=== PATIENT | female | born 1960 | race Caucasian/White ===

== ENCOUNTER 2018-03-06 19:31 | Emergency (ER) | payer MEDICAID ==
--- NOTE | 2018-03-06 20:03 | ED Physician Chart ---
ED Chief Complaint/HPI - Patient Information Date Seen:: 03/06/18 Time Seen:: 20:02 Chief Complaint:: Abdominal pain History of Present Illness:: 57 yo female had abdominal pain for 2 months, worsen for 3 days. The pain was in epigastric, bilateral inguinal and bilateral flank area. Nausea, no vomiting. No fever. Urinary burning sensation for 2 months. No blood in urine. Ibuprofen did not relieve the pain. Allergies:: Allergies Allergy/AdvReac Type Severity Reaction Status Date / Time No Known Allergies Allergy Verified 03/06/18 19:59 Vitals:: Vital Signs - 8 hr 03/06/18 19:45 Temp 97.6 F HR 75 RR 18 BP 103/64 O2 Sat % 98 ED Review of Systems - Review of Systems General/Constitutional: No fever Skin: No skin lesions Head: No headache Eyes: No pain ENT: No nasal drainage Neck: No neck pain Cardio Vascular: No chest pain Pulmonary: No SOB GI: Nausea, No vomiting, Pain, Constipation Musculoskeletal: No bone or joint pain Psychiatric: No prior psych history Neurological: No focal symptoms ED Past Medical History - Past Medical History Past Medical History: Arthritis Social History: Non Smoker, No Alcohol, No Drug Use Surgical History: other (fibroid surgery) Family Medical History - Family Member Mother History Unknown: Yes ED Physical Exam - Physical Examination General/Constitutional: Awake Other Gen/Cons comments:: In distress Head: Atraumatic Eyes: PERRL Skin: No ecchymosis ENMT: Nasal exam nl Neck: No nuchal rigidity Respiratory: Clear to Auscultation Cardio Vascular: RRR, No murmur, gallop, rubs, NL S1 S2 Other GI comments:: Diffused tenderness, bilateral inguinal 2-3 painful LNs Other comments:: B/L CVA tenderness Neuro/Psych: Normal motor strength, No focal deficits ED Labs/Radiology/EKG Results - Radiology Results Results: CT abdomen: appendicolith without appendicitis, large amount of fecal content ED Assessment - Assessment General Assessment: Chronic constipation Leukopenia Assessment/Comments:: CBC, CMP, lipase UA CT abdomen with IV contrast Rocephin IV Flagyl IV D/c home Metronidazole 500mg PO bid x 14 days Magnesium citrate Colace 100mg PO bid x 14 days F/u PCP or return to ER if symptoms worsen ED Septic Shock - . Is Septic Shock (SBP<90, OR Lactate>4 mmol\L) present?: No - <6hrs of presentation: Vital Signs: Vital Signs - 8 hr 03/06/18 19:45 Temp 97.6 F HR 75 RR 18 BP 103/64 O2 Sat % 98 ED Reassessment (Disposition) - Reassessment Reassessment Condition:: Improved - Patient Disposition Discharge/Transfer:: Home ED Discharge Plan - Patient Disposition Admit/Discharge/Transfer: PT DISCHARGED HOME Instructions: Abdominal Pain, [id number] Additional Instructions: FOLLOW UP WITH YOUR FAMILY DOCTOR SOON POSSIBLE TAKE PRESCRIBED MEDICATIONS ORDERED Accepting Physician: not on staff,PCP is [Primary Care Provider] -
[2018-03-06 20:07] LABS: URINE MICROSCOPIC INDICATED? YES; URINE SOURCE RANDOM
[2018-03-06 20:28] LABS: URINE BILIRUBIN NEGATIVE (NEGATIVE); URINE BLOOD NEGATIVE (NEGATIVE); URINE CLARITY CLEAR (CLEAR); URINE COLOR YELLOW; URINE GLUCOSE (UA) NEGATIVE (NEGATIVE); URINE KETONE NEGATIVE (NEGATIVE); URINE PH 5.5 (4.6 - 8.0); URINE PROTEIN NEGATIVE (NEGATIVE); URINE UROBILINOGEN 0.2 E.U./dL (0.2 - 1.0)
[2018-03-06 20:29] LABS: URINE BACTERIA FEW /hpf (NONE SEEN); URINE EPITHELIAL CELLS OCCASIONAL /lpf (FEW); URINE LEUKOCYTE ESTERASE NEGATIVE (NEGATIVE); URINE NITRATE NEGATIVE (NEGATIVE); URINE RBC NONE SEEN /hpf (0-5); URINE WBC 0-2 /hpf (0-5)
[2018-03-06 20:32] LABS: % BASOPHILS 1.4 % (0.0-2.0); % EOSINOPHILS 2.5 % (0.0-5.0); % LYMPHOCYTES 22.4 % (20.0-50.0); % NEUTROPHILS 59.7 % (40.0-80.0); EOSINOPHILE ABSOLUTE 0.1 Th/cmm (0.1-0.4); HEMATOCRIT 36.6 % (41.0-60); HEMOGLOBIN 12.3 gm/dL (12-16); LYMPHOCYTE ABSOLUTE 0.6 Th/cmm (1.5-3.0); MEAN CELL VOLUME 87.2 fl (81-100); MEAN CORPUSCULAR HEMOGLOBIN 29.3 pg (27.0-31.0); MEAN CORPUSCULAR HGB CONC 33.6 pg (28.0-36.0); MEAN PLATELET VOLUME 7.9 fl; MONOCYTE ABSOLUTE 0.4 Th/cmm (0.3-1.0); NEUTROPHILE ABSOLUTE 1.7 Th/cmm (1.8-8.0); PLATELET COUNT 171 Th/cmm (150-400); RED CELL DISTRIBUTION WIDTH 12.6 % (11.5-20.0)
[2018-03-06 20:37] LABS: WHITE BLOOD COUNT 2.8 Th/cmm (4.8-10.8)
[2018-03-06 21:09] LABS: ALB/GLOB RATIO 1.2 (1.0-1.8); ALBUMIN 4.2 gm/dL (3.7-5.3); ALKALINE PHOSPHATASE 80 U/L (34-104); ANION GAP 12.4 (7.0-16.0); BILIRUBIN,TOTAL 0.3 mg/dL (0.3-1.0); BUN - UREA NITROGEN 16 mg/dL (7-25); CALCIUM SERUM 9.2 mg/dL (8.6-10.3); CARBON DIOXIDE 22.2 mEq/L (21.0-31.0); CHLORIDE 104 mEq/L (98-107); CREATININE - SERUM 0.7 mg/dL (0.6-1.2); GFR AFRICAN-AMERICAN > 60.0 ml/min (>90); GFR NON AFRICAN-AMERICAN > 60.0 ml/min; GLUCOSE 94 mg/dL (70-105); LIPASE 25 U/L (11-82); POTASSIUM SERUM 3.6 mEq/L (3.5-5.1); SGOT 20 U/L (13-39); SGPT/ALT 13 U/L (7-52); SODIUM SERUM 135 mEq/L (136-145); TOTAL PROTEIN,SERUM 7.6 gm/dL (6.0-8.3)
[2018-03-06 21:46] LABS: INR 0.96 (0.5-1.4)
[2018-03-06] MEDS ORDERED: IOHEXOL 300mgI/mL 100 ML VIAL ONE (22:01)
[2018-03-06] MEDS ORDERED: Sodium Chloride 0.9% 1,000 ML IV ONE (22:40)
[2018-03-06] MEDS ORDERED: cefTRIAXone 1 GM in Sodium Chloride 0.9% 50 ML IV ONE (22:47)
[2018-03-06] MEDS ORDERED: metroNIDAZOLE 500mg/NS 100mL 500 MG/100 ML BAG IV ONE ×2 (22:48→22:55)
[2018-03-07] MEDS ORDERED: Magnesium Citrate 1.75 GM/300 mL Bottle ONE (00:08)
[2018-03-07] MEDS ORDERED: Magnesium Citrate 1.75 GM/300 mL Bottle PO ONE (00:09)
--- NOTE | 2018-03-08 10:20 | Diagnostic Imaging Report ---
CT abdomen and pelvis with intravenous contrast Indication: Abdominal pain Comparison: None, Technique: Axial images were obtained from the lung bases to the bilateral proximal femurs with IV contrast. Coronal reconstructions were made. total DLP: 292, CTDI4.9 FINDINGS: Exam was presented for review on 03/08/2018 Hypoventilatory and atelectatic changes of the lungs are noted. Hypoventilatory atelectatic changes of the lung bases are noted. No evidence of focal hepatic, splenic, pancreatic, or adrenal lesions. 1 cm left renal cyst is noted. No hydronephrosis. Nonspecific Heterogeneous uterus enhancement is noted. Moderate stool is seen throughout the colon. No evidence of free fluid or free air. There is a 3 mm appendicolith. No evidence of acute appendicitis. No free fluid or free air identified. Degenerative changes of the spine are noted. Mildly prominent bilateral inguinal lymph nodes are incidentally noted. IMPRESSION: 3 mm appendicolith. No evidence of acute appendicitis. Correlation should made with clinical findings. Moderate stool throughout the colon. No evidence of free fluid. 1 cm left renal cyst. Mildly prominent bilateral inguinal lymph nodes nonspecific and possibly reactive. Consider follow-up surveillance if indicated.
== END 2018-03-07 00:15 | disposition home or self-care (01) ==
LOC: ER 19:31
DX: K59.09 Other constipation (principal); D72.819 Decreased white blood cell count, unspecified
CPT/HCPCS: 99284; 96365; 96368; 96375; 74177; 36415; 83605; 85025; 85610; 81001; 81025; 83690; 80053; 87040; C9113; J0696; 90799; J7030; Q9967; Z7502

== ENCOUNTER 2018-06-24 23:40 | Emergency (ER) | payer MEDICAID ==
--- NOTE | 2018-06-25 00:06 | ED Physician Chart ---
ED Chief Complaint/HPI - Patient Information Date Seen:: 06/25/18 Time Seen:: 00:00 Chief Complaint:: pain in arms, legs, shoulders History of Present Illness:: Pain started in on legs, and his shoulders after she cleaned the house yesterday. No other trauma. Patient had nausea yesterday morning which is now subsided. Allergies:: Allergies Allergy/AdvReac Type Severity Reaction Status Date / Time No Known Allergies Allergy Verified 03/06/18 19:59 Vitals:: Vital Signs - 8 hr 06/24/18 23:40 Temp 99.1 F HR 81 RR 18 BP 129/45 O2 Sat % 97 Historian:: Patient Review:: Nurse's Note Reviewed ED Review of Systems - Review of Systems General/Constitutional: No fever, No chills, No weight loss, No weakness, No diaphoresis, No edema, No loss of appetite Skin: No skin lesions Head: No headache Eyes: No loss of vision ENT: No earache Neck: No neck pain Cardio Vascular: No chest pain Pulmonary: No SOB GI: Nausea G/U: No dysuria Musculoskeletal: Bone or joint pain Endocrine: No polyuria Psychiatric: No prior psych history, No depression Hematopoietic: No bruising Allergic/Immuno: No urticaria Neurological: No syncope ED Past Medical History - Past Medical History Past Medical History: Arthritis Family History: None Social History: Non Smoker, No Alcohol Surgical History: other (ovarian cyst) Psychiatricy History: None Medication: Reviewed Family Medical History - Family Member Mother History Unknown: Yes ED Physical Exam - Physical Examination General/Constitutional: Awake, Well-developed, well-nourished, Alert, No distress, GCS 15, Non-toxic appearing, Ambulatory Head: Atraumatic Eyes: Lids, conjuctiva normal, PERRL, EOMI Skin: Nl inspection, No rash, No skin lesions, No ecchymosis, Well hydrated, No lymphadenopathy ENMT: External ears, nose nl, Nasal exam nl, Lips, teeth, gums nl Neck: Nontender, Full ROM w/o pain, No JVD, No nuchal rigidity, No bruit, No mass, No stridor Respiratory: Nl effort/Exclusion, Clear to Auscultation, No Wheeze/Rhonchi/Rales Cardio Vascular: RRR, No murmur, gallop, rubs, NL S1 S2 GI: No tenderness/rebounding/guarding, No organomegaly, No hernia, Normal BS's, Nondistended, No mass/bruits, No McBurney tenderness : No CVA tenderness Extremities: No tenderness or effusion, Full ROM, normal strength in all extremities, No edema Other Extremities comments:: Arthritic changes of fingers noted; straight leg raising is 90 bilaterally Neuro/Psych: Alert/oriented, DTR's symmetric, Normal sensory exam, Normal motor strength, Judgement/insight normal, Mood normal, Normal gait, No focal deficits Misc: Normal back, No paraspinal tenderness ED Septic Shock - . Is Septic Shock (SBP<90, OR Lactate>4 mmol\L) present?: No - <6hrs of presentation: Vital Signs: Vital Signs - 8 hr 06/24/18 23:40 Temp 99.1 F HR 81 RR 18 BP 129/45 O2 Sat % 97 ED Reassessment (Disposition) - Reassessment Reassessment Condition:: Unchanged - Diagnosis Diagnosis:: Musculoskeletal pain from arthritis - Aftercare/Follow up Instructions Aftercare/Follow-Up Instructions:: Refer to Discharge Instructions - Patient Disposition Discharge/Transfer:: Home Condition at Disposition:: Stable, Unchanged
== END 2018-06-25 00:52 | disposition home or self-care (01) ==
LOC: ER 23:40
DX: M19.90 Unspecified osteoarthritis, unspecified site (principal); M25.511 Pain in right shoulder; M25.512 Pain in left shoulder; M79.605 Pain in left leg; M79.604 Pain in right leg; R11.0 Nausea
CPT/HCPCS: 99283; 96372; J1885; Z7502

== ENCOUNTER 2019-03-17 22:49 | Emergency (ER) | payer MEDICAID ==
--- NOTE | 2019-03-17 23:18 | ED Physician Chart ---
ED Chief Complaint/HPI - Patient Information Date Seen:: 03/17/19 Time Seen:: 23:05 Chief Complaint:: rash both legs History of Present Illness:: Patient's had a blotchy lower extremity rash for last 2 months gradually increasing in severity. Her legs are painful especially when she walks. Patient has had to use a wheelchair today because of the pain. Patient was diagnosed at [facility] 7-8 months ago with rheumatoid arthritis for which she was put on 4-5 medications. Allergies:: Allergies Allergy/AdvReac Type Severity Reaction Status Date / Time Penicillins Allergy Verified 03/17/19 22:53 Vitals:: Vital Signs - 8 hr 03/17/19 22:50 Temp 98.1 F HR 108 RR 20 BP 108/47 O2 Sat % 95 Historian:: Patient, Family Member Review:: Nurse's Note Reviewed ED Review of Systems - Review of Systems General/Constitutional: No fever, No chills Skin: Rash Head: No headache Eyes: No loss of vision ENT: No earache Neck: No neck pain, No swelling Cardio Vascular: No chest pain, No palpitations Pulmonary: No SOB GI: No nausea, No vomiting, No diarrhea G/U: No dysuria Musculoskeletal: No bone or joint pain Endocrine: No polyuria, No polydipsia Psychiatric: No prior psych history, No depression, No anxiety Hematopoietic: No lymphadenopathy Allergic/Immuno: No urticaria Neurological: No syncope, No focal symptoms ED Past Medical History - Past Medical History Past Medical History: Other (rheumatoid arthritis) Family History: None Social History: Non Smoker, No Alcohol Surgical History: other (lymph node biopsy right axilla) Psychiatricy History: None Medication: Reviewed Family Medical History - Family Member Mother History Unknown: Yes Ethnicity: Hx Family Hypertension: No Hx Family Stroke: No Hx Family Diabetes: No ED Physical Exam - Physical Examination General/Constitutional: Awake, Well-developed, well-nourished, Alert, No distress Head: Atraumatic Eyes: Lids, conjuctiva normal, PERRL Other Skin comments:: On both lower legs there are many bright erythematous blotches up to about 2 cm in diameter ENMT: External ears, nose nl, TM canals nl, Nasal exam nl Neck: No nuchal rigidity Respiratory: Nl effort/Exclusion, Clear to Auscultation Cardio Vascular: RRR, No murmur, gallop, rubs GI: No tenderness/rebounding/guarding, Nondistended Other Extremities comments:: See under skin Neuro/Psych: Normal gait ED Assessment - Assessment General Assessment: Patient most likely has a drug rash secondary to 1 or a combination of the medications she was placed on Thursday months ago for rheumatoid arthritis. I told the patient she must go back to [facility] rheumatology clinic for medication adjustment. ED Septic Shock - <6hrs of presentation: Vital Signs: Vital Signs - 8 hr 03/17/19 22:50 Temp 98.1 F HR 108 RR 20 BP 108/47 O2 Sat % 95 ED Reassessment (Disposition) - Reassessment Reassessment Condition:: Unchanged - Diagnosis Diagnosis:: Drug exanthem - Aftercare/Follow up Instructions Aftercare/Follow-Up Instructions:: Refer to Discharge Instructions Medication Prescribed:: Atarax 25 mg #30 to take 1 4 times a day - Patient Disposition Discharge/Transfer:: Home Condition at Disposition:: Stable, Unchanged
== END 2019-03-18 00:45 | disposition home or self-care (01) ==
LOC: ER 22:49
DX: L27.0 Generalized skin eruption due to drugs and medicaments taken internally (principal); R21 Rash and other nonspecific skin eruption; Z88.0 Allergy status to penicillin
CPT/HCPCS: 99283; 96372; J1885; Z7502

== ENCOUNTER 2019-06-04 20:25 | Emergency (ER) | payer SELFPAY ==
--- NOTE | 2019-06-04 20:50 | ED Physician Chart ---
ED Chief Complaint/HPI - Patient Information Date Seen:: 06/04/19 Time Seen:: 20:44 Chief Complaint:: red rash of both lower legs History of Present Illness:: this is a 58 yo female bib her family for her lower leg rash and puritis of her lower legs. she has been dealing with problem for nearly a year. the patient is currently being care for at [facility] for the same problem and was told it was because of her platelets. she is scheduled to see a hematology and is now waiting for her set appoint to see the eeg technician. Allergies:: Allergies Allergy/AdvReac Type Severity Reaction Status Date / Time Penicillins Allergy Verified 03/17/19 22:53 Historian:: Patient, Family Member Review:: Nurse's Note Reviewed, Old Chart Reviewed ED Review of Systems - Review of Systems General/Constitutional: No fever, No chills, No weight loss, No weakness, No diaphoresis, No edema, No loss of appetite Skin: No skin lesions, Rash (bilateral lower extermities red rash of blotches of bleeding under the skin with puritis. the rash is circumferential.), No bruising Head: No headache, No light-headedness Eyes: No loss of vision, No pain, No diplopia ENT: No earache, No nasal drainage, No sore throat, No tinnitus Neck: No neck pain, No swelling, No thyromegaly, No stiffness, No mass noted Cardio Vascular: No chest pain, No palpitations, No PND, No orthopnea, No edema Pulmonary: No SOB, No cough, No sputum, No wheezing GI: No nausea, No vomiting, No diarrhea, No pain, No melena, No hematochezia, No constipation, No hematemesis G/U: No dysuria, No frequency, No hematuria Musculoskeletal: No bone or joint pain, No back pain, No muscle pain Endocrine: No polyuria, No polydipsia Psychiatric: No prior psych history, No depression, No anxiety, No suicidal ideation Hematopoietic: No bruising, No lymphadenopathy Allergic/Immuno: No urticaria, No angioedema Neurological: No syncope, No focal symptoms, No weakness, No paresthesia, No headache, No seizure, No dizziness, No confusion, No vertigo ED Past Medical History - Past Medical History Obtainable: Yes Past Medical History: Arthritis, Other (platlet disorder, 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.) Family History: None Social History: Non Smoker, No Alcohol, No Drug Use Surgical History: other (left axillary node biopsy) Psychiatricy History: None Family Medical History - Family Member Mother History Unknown: Yes Ethnicity: Hx Family Hypertension: No Hx Family Stroke: No Hx Family Diabetes: No ED Physical Exam - Physical Examination General/Constitutional: Awake, Well-developed, well-nourished, Alert, No distress, GCS 15, Non-toxic appearing, Ambulatory Head: Atraumatic Eyes: Lids, conjuctiva normal, PERRL, EOMI Skin: Nl inspection, No ecchymosis, Well hydrated, No lymphadenopathy Other Skin comments:: there are bilater lower extremity blotches of erythemic area up to mid shaft circumferentially which is puritic, and tender to touch. there is no active bleeding noted. ENMT: External ears, nose nl, Nasal exam nl, Lips, teeth, gums nl Neck: Nontender, Full ROM w/o pain, No JVD, No nuchal rigidity, No bruit, No mass, No stridor Respiratory: Nl effort/Exclusion, Clear to Auscultation, No Wheeze/Rhonchi/Rales Cardio Vascular: RRR, No murmur, gallop, rubs, NL S1 S2 GI: No tenderness/rebounding/guarding, No organomegaly, No hernia, Normal BS's, Nondistended, No mass/bruits, No McBurney tenderness : No CVA tenderness Extremities: No tenderness or effusion, Full ROM, normal strength in all extremities, No edema, Normal digits & nails Neuro/Psych: Alert/oriented, DTR's symmetric, Normal sensory exam, Normal motor strength, Judgement/insight normal, Mood normal, Normal gait, No focal deficits Misc: Normal back, No paraspinal tenderness ED Labs/Radiology/EKG Results - Radiology Results Results: chest x-ray = nad - EKG Interpretations EKG Time:: 20:55 Rate & Rhythm: rate= 94, sinus [place]: right ED Assessment - Assessment General Assessment: rash of the lower extremities ED Septic Shock - . Is Septic Shock (SBP<90, OR Lactate>4 mmol\L) present?: No ED Reassessment (Disposition) - Reassessment Reassessment Condition:: Improved
[2019-06-04 21:20] LABS: INR 0.88 (0.5-1.4)
[2019-06-04 21:24] LABS: ALB/GLOB RATIO 1.7 (1.0-1.8); ALBUMIN 3.8 gm/dL (3.7-5.3); ALKALINE PHOSPHATASE 93 U/L (34-104); ANION GAP 13.3 (7.0-16.0); BILIRUBIN,TOTAL 0.4 mg/dL (0.3-1.0); BUN - UREA NITROGEN 12 mg/dL (7-25); CALCIUM SERUM 8.7 mg/dL (8.6-10.3); CARBON DIOXIDE 21.9 mEq/L (21.0-31.0); CHLORIDE 104 mEq/L (98-107); CHOLESTEROL 155 mg/dL (<200); CREATININE - SERUM 0.9 mg/dL (0.6-1.2); GFR AFRICAN-AMERICAN > 60.0 ml/min (>90); GFR NON AFRICAN-AMERICAN > 60.0 ml/min; GLUCOSE 146 mg/dL (70-105); HDL -HIGH DENSITY LIPOPROTEIN 67 mg/dL (23-92); POTASSIUM SERUM 3.2 mEq/L (3.5-5.1); SGOT 16 U/L (13-39); SGPT/ALT 17 U/L (7-52); SODIUM SERUM 136 mEq/L (136-145); TRIGLYCERIDES 146 mg/dL (<150)
[2019-06-04] MEDS ORDERED: Maalox 30 mL Cup PO ONE (21:30)
[2019-06-04] MEDS ORDERED: Maalox 30 mL Cup ONE (21:35)
[2019-06-04 21:37] LABS: HEMATOCRIT 31.5 % (41.0-60); HEMOGLOBIN 10.5 gm/dL (12-16); MEAN CELL VOLUME 80.2 fl (81-100); MEAN CORPUSCULAR HEMOGLOBIN 26.8 pg (27.0-31.0); MEAN CORPUSCULAR HGB CONC 33.5 pg (28.0-36.0); RED BLOOD COUNT 3.93 Mil/cmm (3.80-5.10); RED CELL DISTRIBUTION WIDTH 14.8 % (11.5-20.0); WHITE BLOOD COUNT 5.8 Th/cmm (4.8-10.8)
[2019-06-04 21:38] LABS: PLATELET COUNT 15 Th/cmm (150-400)
[2019-06-04 21:48] LABS: URINE SOURCE CLEAN C
[2019-06-04] MEDS ORDERED: Potassium Chloride Elixir 20 mEq /15 mL UDC PO ONE (21:48)
[2019-06-04] MEDS ORDERED: Potassium Chloride Elixir 20 mEq /15 mL UDC ONE (21:50)
[2019-06-04 21:51] LABS: URINE BILIRUBIN NEGATIVE (NEGATIVE); URINE BLOOD NEGATIVE (NEGATIVE); URINE GLUCOSE (UA) NEGATIVE (NEGATIVE); URINE KETONE NEGATIVE (NEGATIVE); URINE LEUKOCYTE ESTERASE NEGATIVE (NEGATIVE); URINE NITRATE NEGATIVE (NEGATIVE); URINE PROTEIN NEGATIVE (NEGATIVE); URINE UROBILINOGEN 0.2 E.U./dL (0.2 - 1.0)
[2019-06-04 22:22] LABS: BAND NEUTROPHILE 0 % (0-10); BASOPHIL 0 % (0-3); EOSINOPHIL 0 % (0-5); LYMPHOCYTE 7 % (20-50); MONOCYTE 3 % (2-10); NEUTROPHILS 90 % (40-80)
[2019-06-04 22:23] LABS: PLATELET ESTIMATE DECREASED PLATELETS (NORMAL)
[2019-06-04 22:24] LABS: URINE CLARITY CLEAR (CLEAR); URINE COLOR YELLOW
[2019-06-04 22:25] LABS: URINE MICROSCOPIC INDICATED? YES
[2019-06-04 22:27] LABS: URINE BACTERIA NONE SEEN /hpf (NONE SEEN); URINE EPITHELIAL CELLS NONE SEEN /lpf (FEW); URINE RBC NONE SEEN /hpf (0-5); URINE WBC NONE SEEN /hpf (0-5)
--- NOTE | 2019-06-05 11:01 | Diagnostic Imaging Report ---
CHEST X-RAY: AP view INDICATION: Shortness of breath COMPARISON: None FINDINGS: Mild chronic changes are noted. There is no focal consolidation or pleural effusions The heart is normal in size. Postsurgical changes of the axilla are noted. The osseous structures are intact. IMPRESSION: Mild chronic lung changes. No focal consolidation identified Postsurgical changes of the right axilla.
[2019-06-06 08:09] LABS: IRON LC 25 ug/dL (27-159); TIBC (LC) 327 ug/dL (250-450); UIBC 302 ug/dL (131-425)
== END 2019-06-04 22:00 | disposition home or self-care (01) ==
LOC: ER 20:25
DX: R21 Rash and other nonspecific skin eruption (principal); M19.90 Unspecified osteoarthritis, unspecified site; Z88.0 Allergy status to penicillin
CPT/HCPCS: 99284; 93005; 71045; 84484; 36415; 83550; 84443; 86592; 85007; 85049; 85025; 85610; 85730; 81001; 83540; 80053; 80061; 87040 ×2; J7510